=== PATIENT | female | born 1990 | race Caucasian/White ===

== ENCOUNTER 2017-06-01 22:42 | Emergency (ER) | payer OTHER ==
[~2017-06-01] VITALS: Ht 144.8 cm; Wt 69.4 kg
[2017-06-01 22:53] VITALS: BP 143/87
[2017-06-01] MEDS ORDERED: KETOROLAC 30 MG/ML VIAL IM ONE (23:15)
[2017-06-01] MEDS ORDERED: DIAZEPAM 5 MG TAB PO ONE (23:15)
[2017-06-02] VITALS: BP 135/75
== END 2017-06-02 | disposition home or self-care (01) ==
LOC: MED 22:42
DX: M54.5 Low back pain (principal); R03.0 Elevated blood-pressure reading, without diagnosis of hypertension; W18.39XA Other fall on same level, initial encounter; Y93.89 Activity, other specified; Y92.89 Other specified places as the place of occurrence of the external cause; Y99.8 Other external cause status
CPT/HCPCS: 72100; 81002; 81025; 96372; 99284; J1885

== ENCOUNTER 2018-11-19 02:19 | Emergency (ER) | payer OTHER ==
[~2018-11-19] VITALS: Ht 144.8 cm; Wt 68.0 kg
[2018-11-19 02:23] VITALS: BP 124/78
--- NOTE | 2018-11-19 02:23 | NUR ---
TO BED # 04 AMBULATORY
--- NOTE | 2018-11-19 02:25 | NUR ---
PT CAME IN TO ER WITH C/O FEVER X 4 DAYS. PT STATED SHE HAS BEEN HAVING N/V/D. PT ALSO STATED SHE HAS SOME ABDOMINAL PAIN. PAIN LEVEL IS 7/10 AT THIS TIME. COOLING MEASURES WERE IMPLEMENTED IN TRIAGE FOR FEVER ABOVE 102.0. PT IS A/OX4. ER MD MADE AWARE OF STATUS. SAFETY PRECAUTIONS ARE IMPLEMENTED AND BED RAILS UP 2 X. FRIEND AT BEDSIDE.
[2018-11-19] MEDS ORDERED: ACETAMINOPHEN EXTRA STRENGTH 500 MG TAB PO ONE (02:30)
[2018-11-19] MEDS ORDERED: NACL 0.9% 500 ML IV ONE (02:35)
[2018-11-19] MEDS ORDERED: ONDANSETRON 4 MG/2 ML VIAL IVP ONE (02:35)
[2018-11-19] MEDS ORDERED: KETOROLAC 30 MG/ML VIAL IVP ONE (02:35)
[2018-11-19 03:02] LABS: HEMATOCRIT 42.4 % (36-48); HEMOGLOBIN 14.5 g/dL (12.0-16.0); MEAN CORPUSCULAR HEMOGLOBIN 30 pg (27-31); MEAN CORPUSCULAR HGB CONC 34 g/dL (33-37); MEAN CORPUSCULAR VOLUME 87.4 fL (80-94); PLATELET COUNT (AUTO) 239 K/uL (140-450); RED BLOOD CELL COUNT(AUTO) 4.85 MIL/uL (4.20-5.40); RED CELL DISTRIBUTION WIDTH 12.8 % (11.6-13.7)
[2018-11-19 03:15] LABS: LYMPHOCYTES % (MANUAL) 11 % (20-46); MONOCYTES % (MANUAL) 5 % (5-12)
[2018-11-19 03:16] LABS: ALBUMIN 3.5 g/dL (3.4-5.0); ANION GAP 15.5 (8-16); CARBON DIOXIDE 23.3 mmol/L (21-32); TOTAL BILIRUBIN 0.5 mg/dL (0.0-1.0)
[2018-11-19 03:19] LABS: POTASSIUM 2.8 mmol/L (3.5-5.1)
[2018-11-19] MEDS ORDERED: POTASSIUM CHLORIDE 10 MEQ TABER PO ONE (03:20)
[2018-11-19] MEDS ORDERED: LEVOFLOXACIN 500 MG TAB PO ONE (03:25)
--- NOTE | 2018-11-19 03:30 | NUR ---
pt ambulated to the restroom independantly. comfort measures offerend pt tolerated well. pain level has decreased to 3/10. er md made aware.
[2018-11-19 04:03] VITALS: BP 124/78
--- NOTE | 2018-11-19 04:03 | NUR ---
Patient discharged with v/s stable. Written and verbal after care instructions given and explained. Patient alert, oriented and verbalized understanding of instructions. Ambulatory with steady gait. All questions addressed prior to discharge. ID band removed. Patient advised to follow up with PMD. Rx of ciprofloxacin and zofran was given. Patient educated on indication of medication including possible reaction and side effects. Opportunity to ask questions provided and answered.
== END 2018-11-19 04:03 | disposition home or self-care (01) ==
LOC: MED 02:19
DX: K52.9 Noninfective gastroenteritis and colitis, unspecified (principal); B96.89 Other specified bacterial agents as the cause of diseases classified elsewhere
CPT/HCPCS: 36415; 80053; 81025; 83690; 85025; 96361; 96374; 96375; 99284; J1885; J2405; J7030

== ENCOUNTER 2019-11-29 09:06 | Emergency (ER) | payer OTHER ==
[~2019-11-29] VITALS: Ht 144.8 cm; Wt 77.7 kg
[2019-11-29 09:13] VITALS: BP 121/79
--- NOTE | 2019-11-29 09:13 | NUR ---
29 Y/O F C/C LEFT EAR PAIN X3 DAYS. PER PT OBTAINED OTC RX DROP WITH NO RELIEF. PAIN 10/, PT BELIEVES HAS AN EAR INFECTION. PT NKA. NO HX. NO RX. NO N/V/D. SIDE RAIL X1.
--- NOTE | 2019-11-29 09:18 | NUR ---
Patient ambulated to bed 6. RN evaluating patient at bedside.
--- NOTE | 2019-11-29 09:33 | NUR ---
Dr. Cisneros is evaluating the patient at bedside.
[2019-11-29 09:47] VITALS: BP 121/79
--- NOTE | 2019-11-29 09:47 | NUR ---
Patient discharged with v/s stable. Written and verbal after care instructions given and explained. Patient alert, oriented and verbalized understanding of instructions. Ambulatory with steady gait. All questions addressed prior to discharge. ID band removed. Patient advised to follow up with PMD. Rx of NAPROSYN, AMOXICILLIN given. Patient educated on indication of medication including possible reaction and side effects. Opportunity to ask questions provided and answered.
== END 2019-11-29 09:47 | disposition home or self-care (01) ==
LOC: MED 09:06
DX: H66.92 Otitis media, unspecified, left ear (principal); F32.9 Major depressive disorder, single episode, unspecified; F41.9 Anxiety disorder, unspecified
CPT/HCPCS: 99283

== ENCOUNTER 2019-12-01 08:46 | Emergency (ER) | payer OTHER ==
[~2019-12-01] VITALS: Ht 144.8 cm; Wt 78.9 kg
[2019-12-01 08:50] VITALS: BP 124/78
--- NOTE | 2019-12-01 09:00 | NUR ---
Pt c/o dry cough, sore throat, and left ear pain x4 days. Pt states she was seen at [facility] for ear pain on thursday and sent home with abx of Amoxicillin. pt reports muffeled hearing. denies injury. Edema and erythema noticed in pt's left ear. PATIENT STATES PAIN OF 10/10 AT THIS TIME; VSS; PATIENT POSITIONED FOR COMFORT; HOB ELEVATED; BEDRAILS UP X1; BED DOWN. ER MD MADE AWARE OF PT STATUS.
--- NOTE | 2019-12-01 09:02 | NUR ---
Dr. Cesar is evaluating pt at bedside.
[2019-12-01 09:35] VITALS: BP 110/71
--- NOTE | 2019-12-01 09:35 | NUR ---
Patient discharged with v/s stable. Written and verbal after care instructions given and explained. Patient alert, oriented and verbalized understanding of instructions. Ambulatory with steady gait. All questions addressed prior to discharge. ID band removed. Patient advised to follow up with PMD. Rx of Lauro Alcantara Flonase given. Patient educated on indication of medication including possible reaction and side effects. Opportunity to ask questions provided and answered.
== END 2019-12-01 09:35 | disposition home or self-care (01) ==
LOC: MED 08:46
DX: H66.92 Otitis media, unspecified, left ear (principal)
CPT/HCPCS: 99283

== ENCOUNTER 2020-07-27 06:15 | Emergency (ER) | payer OTHER ==
[~2020-07-27] VITALS: Ht 144.8 cm; Wt 63.5 kg
[2020-07-27 06:20] VITALS: BP 140/90
--- NOTE | 2020-07-27 06:29 | NUR ---
PT TAKEN TO TENT
--- NOTE | 2020-07-27 06:35 | NUR ---
SEEN AND EXAMINED BY BLAEN WITH ORDERS AND CARRIED OUT
[2020-07-27 06:59] VITALS: BP 140/90
--- NOTE | 2020-07-27 06:59 | NUR ---
Patient discharged with v/s stable. Written and verbal after care instructions given and explained. Patient alert, oriented and verbalized understanding of instructions. Ambulatory with steady gait. All questions addressed prior to discharge. ID band removed. Patient advised to follow up with PMD. Rx of CODEINE PHOSPHATE/PROMETHAZINE SYRUP given. Patient educated on indication of medication including possible reaction and side effects. Opportunity to ask questions provided and answered.
== END 2020-07-27 06:59 | disposition home or self-care (01) ==
LOC: MED 06:15
DX: U07.1 COVID-19 (principal); J12.89 Other viral pneumonia
CPT/HCPCS: 99283

== ENCOUNTER 2023-02-20 21:17 | Emergency (ER) | payer OTHER ==
[~2023-02-20] VITALS: Ht 144.8 cm; Wt 76.7 kg
[2023-02-20 21:31] VITALS: BP 122/73; PULSE 74; RESP 18; TEMP 97.5; O2SAT 96
[2023-02-20 22:52] LABS: BASOPHILS % (AUTO) 0.4 % (0.0-2.0); EOSINOPHILS # (AUTO) 0.3 K/uL (0-0.4); EOSINOPHILS % (AUTO) 2.3 % (0.0-4.0); HEMATOCRIT 41.6 % (36-48); HEMOGLOBIN 13.9 g/dL (12.0-16.0); MEAN CORPUSCULAR HEMOGLOBIN 29 pg (27-31); MEAN CORPUSCULAR HGB CONC 34 g/dL (33-37); MEAN CORPUSCULAR VOLUME 87.4 fL (80-94); MONOCYTES # (AUTO) 0.8 K/uL (0.8-1.0); MONOCYTES % (AUTO) 7.3 % (1.7-9.3); PLATELET COUNT (AUTO) 326 K/uL (140-450); RED BLOOD CELL COUNT(AUTO) 4.75 MIL/uL (4.20-5.40); RED CELL DISTRIBUTION WIDTH 12.6 % (11.6-13.7); WHITE BLOOD COUNT (AUTO) 11.1 K/uL (4.8-10.8)
[2023-02-20 22:53] LABS: APPEARANCE,URINE CLEAR (CLEAR); BILIRUBIN,URINE NEGATIVE (NEGATIVE); BLOOD, URINE NEGATIVE (NEGATIVE); COLOR,URINE YELLOW (YELLOW); LEUKOCYTE ESTERASE ,URINE NEGATIVE (NEGATIVE); NITRITE, URINE NEGATIVE (NEGATIVE); UGLUCOSE NEGATIVE (NEGATIVE)
[2023-02-20 23:14] LABS: RBC,URINE 0-5 /HPF (0-5)
[2023-02-20 23:19] LABS: ALBUMIN 3.6 g/dL (3.4-5.0); ANION GAP 14.6 (8-16); CARBON DIOXIDE 23.1 mmol/L (21-32); CREATININE 0.7 mg/dL (0.6-1.3); POTASSIUM 3.7 mmol/L (3.5-5.1); TOTAL BILIRUBIN 0.1 mg/dL (0.0-1.0)
--- NOTE | 2023-02-21 00:07 | NUR ---
TO BED 11 FROM LOBBY
[2023-02-21] MEDS ORDERED: cefTRIAXone 1,000 MG VIAL ONE (01:21)
[2023-02-21 01:30] VITALS: O2SAT 96
--- NOTE | 2023-02-21 01:53 | NUR ---
Patient discharged with v/s stable. Written and verbal after care instructions given and explained. Patient verbalized understanding. Ambulatory with steady gait. All questions addressed prior to discharge. Advised to follow up with PMD.
[2023-02-21] MEDS ORDERED: NITR100C7 PO (01:54)
== END 2023-02-21 01:53 | disposition home or self-care (01) ==
LOC: MED 21:17
DX: N39.0 Urinary tract infection, site not specified (principal); F41.9 Anxiety disorder, unspecified; F32.A Depression, unspecified; G47.00 Insomnia, unspecified; Z79.899 Other long term (current) drug therapy
CPT/HCPCS: 36415; 74176; 80053; 81001; 81025; 85025; 87040; 87086; 96365; 99285; J0696

== ENCOUNTER 2023-10-07 02:35 | Emergency (ER) | payer OTHER ==
[~2023-10-07] VITALS: Ht 144.8 cm; Wt 77.6 kg
[~2023-10-07 02:35] MED LIST: NITR100C7 PO
[2023-10-07 02:42] VITALS: BP 120/82; PULSE 126; RESP 24; TEMP 99.1; O2SAT 96
[2023-10-07 02:56] VITALS: BP 120/82; PULSE 126; RESP 24; TEMP 99.1; O2SAT 96
[2023-10-07] MEDS: PENICILLIN V POTASSIUM 250 MG TAB PO ONE (03:39)
[2023-10-07] MEDS: ACETAMINOPHEN EXTRA STRENGTH 500 MG TAB PO ONE (03:40)
[2023-10-07] MEDS ORDERED: PENI500T20 PO (03:42)
[2023-10-07] MEDS ORDERED: OFLO5SOL27 LEFT EAR (03:43)
[2023-10-07] MEDS: LIDOCAINE/EPI MPF 2%1:200000 10 ML VIAL INJ ONE (04:00)
== END 2023-10-07 04:01 | disposition home or self-care (01) ==
LOC: MED 02:35
DX: O26.891 Other specified pregnancy related conditions, first trimester (principal); H60.92 Unspecified otitis externa, left ear; Z3A.00 Weeks of gestation of pregnancy not specified; Z79.899 Other long term (current) drug therapy
CPT/HCPCS: 64400; 99284; J2001

== ENCOUNTER 2024-02-05 23:12 | Observation (INO) | payer OTHER ==
[~2024-02-05] VITALS: Ht 144.8 cm; Wt 81.6 kg
[~2024-02-05 23:12] MED LIST changes: +OFLO5SOL27 LEFT EAR; +PENI500T20 PO
[2024-02-05] MEDS ORDERED: PREN-543 PO (23:46)
[2024-02-05 23:47] VITALS: BP 122/75; PULSE 104; RESP 20; TEMP 97.7
[2024-02-06 00:02] LABS: BILIRUBIN,URINE NEGATIVE (NEGATIVE); BLOOD, URINE NEGATIVE (NEGATIVE); COLOR,URINE YELLOW (YELLOW); LEUKOCYTE ESTERASE ,URINE NEGATIVE (NEGATIVE); NITRITE, URINE NEGATIVE (NEGATIVE); PROTEIN,URINE 2+ (NEGATIVE); UGLUCOSE NEGATIVE (NEGATIVE); UROBILINOGEN,URINE 0.2 EU/dL (0.2 - 1)
[2024-02-06 00:06] LABS: APPEARANCE,URINE SLIGHTLY HAZY (CLEAR)
[2024-02-06 00:08] LABS: RBC,URINE 0-5 /HPF (0-5); WBC,URINE 0-5 /HPF (0-5)
[2024-02-06 00:09] LABS: BACTERIA,URINE 1+ /HPF (None Seen); MUCUS,URINE None Seen /LPF (None Seen); SQUAMOUS EPITHELIAL CELL,UR 4-10 (MOD) /LPF (0-3 (FEW))
[2024-02-06] MEDS: TERBUTALINE 1 MG/ML VIAL SUBQ SCH (01:22)
== END 2024-02-06 02:00 | disposition home or self-care (01) ==
LOC: MLD 23:12
PROVIDERS: ADMIT Obstetrics & Gynecology; ATTEND Obstetrics & Gynecology
DX: O62.9 Abnormality of forces of labor, unspecified (principal); O21.2 Late vomiting of pregnancy; Z3A.31 31 weeks gestation of pregnancy
CPT/HCPCS: 81001; 96372; G0378; J3105